=== PATIENT | male | born 1955 | race Caucasian/White ===

== ENCOUNTER 2017-07-01 08:25 | Emergency (ER) | payer OTHER ==
[2017-07-01] MEDS ORDERED: PROPARACAINE 0.5% 15 ML OPHT DROP ONE (08:40)
[2017-07-01] MEDS ORDERED: PROPARACAINE 0.5% 15 ML OPHT DROP OP ONE (08:48)
[2017-07-01] MEDS ORDERED: FLUORESCEIN SOD/BENOXINATE HCL 20 DROPS/ML OPHT.BTL OP ONE (09:09)
[2017-07-01] MEDS ORDERED: FLUORESCEIN SOD/BENOXINATE HCL 20 DROPS/ML OPHT.BTL ONE (09:09)
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
[2017-07-01] MEDS ORDERED: TDAP ADULT 0.5 ML INJ (BOOSTRIX) IM ONE (09:19)
[2017-07-01] MEDS ORDERED: OFLOXACIN 0.3% SOLN PREPACK OPHT.BTL TAKEHOME ONE (09:59)
[2017-07-01 10:20] VITALS: BP 131/78
== END 2017-07-01 10:20 | disposition home or self-care (01) ==
DX: S05.02XA Injury of conjunctiva and corneal abrasion without foreign body, left eye, initial encounter (principal); S60.221A Contusion of right hand, initial encounter; H11.32 Conjunctival hemorrhage, left eye; I10 Essential (primary) hypertension; Z23 Encounter for immunization; Y08.89XA Assault by other specified means, initial encounter; Y92.69 Other specified industrial and construction area as the place of occurrence of the external cause; Y99.0 Civilian activity done for income or pay